=== PATIENT | male | born 1965 | race Caucasian/White ===

== ENCOUNTER → 2019-05-09 | Day surgery (SDC) | payer OTHER ==
[~2019-05-09] MED LIST: ATOR40TA PO; CINN500C2 PO; FENO134C PO; FEXO180T81 PO; IPRATRPIUM/ALBUTEROL 0.5/2.5MG 3 ML NEBU. NEB PRN; IV RINGERS SOLUTION,LACTATED 1,000 ML IV SCH; METF10007 PO; NIFE60TA41 PO; ONDANSETRON PF 4 MG/2 ML VIAL. IV PRN; PROPOFOL 40 ML IV ONE; SERT100T PO; SITA1TAB11 PO; VALS1TAB14 PO
[2019-05-09 13:14] VITALS: BP 156/87
--- NOTE | 2019-05-13 15:07 | PATHOLOGY ---
[facility] Accession Number: [id number] . 01 Material submitted: . colon - TRANSVERSE COLON POLYP. Modifiers: transverse . 01 Clinical history: . Screening . 02 Diagnosis: Colon biopsy, transverse colon polyp: - Hyperplastic polyp. LBQ 05/13/2019 1134 Local . 02 Comment: There are no adenomatous changes or evidence of malignancy. (JPM/db; 05/13/2019) . 02 Electronically signed: . Sonido Hidalgo MD, Pathologist NPI- [id number] . 01 Gross description: . The specimen is received in formalin, labeled "Christopher Naun, transverse colon polyp". Received is a segment of pale leon soft tissue measuring 0.5 cm in maximum dimensions. The specimen is submitted entirely in cassette A1. ([facility]; 05/10/2019) QA/[facility] 05/10/2019 1911 Local . 02 Pathologist provided ICD-10: K63.5 . 02 CPT . 341423 Specimen Comment: A courtesy copy of this report has been sent to [phone] Specimen Comment: Report sent to Performed at: 01 [facility] [address], [place] [id number] MD Srinivas Owen MD Phone: [phone] Performed at: [address] [facility] [address] [place], [place] [id number] MD Sonido Hidalgo MD Phone: [phone]
== END ==
LOC: SURG 09:11
PROVIDERS: ATTEND Internal Medicine Gastroenterology
DX: K92.1 Melena (principal); K63.5 Polyp of colon; K57.30 Diverticulosis of large intestine without perforation or abscess without bleeding; K64.4 Residual hemorrhoidal skin tags; I10 Essential (primary) hypertension; E11.9 Type 2 diabetes mellitus without complications; K21.9 Gastro-esophageal reflux disease without esophagitis; Z87.39 Personal history of other diseases of the musculoskeletal system and connective tissue; Z86.010 Personal history of colon polyps; Z83.71 Family history of colonic polyps; Z79.84 Long term (current) use of oral hypoglycemic drugs
CPT/HCPCS: 45380; 82947; 88305; J2704; J7120; 45385